=== PATIENT | male | born 1985 | race Caucasian/White ===

== ENCOUNTER → 2020-04-29 12:47 | Outpatient (BNVA) | payer OTHER, SELFPAY | PROVIDERS: Visit Provider Internal Medicine | DX: K12.1 Other forms of stomatitis (principal); D86.9 Sarcoidosis, unspecified; M25.50 Pain in unspecified joint; R21 Rash and other nonspecific skin eruption; R53.83 Other fatigue | CPT/HCPCS: 99203 ==

== ENCOUNTER 2020-04-29 14:13 | Outpatient (CLI) | payer OTHER, SELFPAY ==
--- NOTE | 2020-04-29 14:18 | XRR_ITS ---
PROCEDURE INFORMATION: Exam: XR Bilateral Hips with Pelvis when Performed Exam date and time: 04/29/2020 2:37 PM Age: 34 years old Clinical indication: Hip pain; Bilateral; Patient HX: Low back pain TECHNIQUE: Imaging protocol: XR bilateral hips with pelvis when performed. Views: 2 views. COMPARISON: No relevant prior studies available. FINDINGS: Bones/joints: There is sclerosis in the right femoral neck measuring 2.2 x 1.7 cm.There is no evidence for acute fracture or malalignment. Soft tissues: Unremarkable. XR/XR hip BI 3-4V wo/w pel [id number] IMPRESSION: There are no acute concerning abnormalities.
--- NOTE | 2020-04-29 14:18 | XRR_ITS ---
PROCEDURE INFORMATION: Exam: XR Left Hand Exam date and time: 04/29/2020 2:35 PM Age: 34 years old Clinical indication: Pain; Hand; Bilateral; Additional info: Hand pain TECHNIQUE: Imaging protocol: XR Left hand. Views: 3 or more views. COMPARISON: No relevant prior studies available. FINDINGS: Bones/joints: There is no evidence for acute fracture or malalignment. No significant joint space narrowing, osteophyte formation or erosions. Soft tissues: Normal. XR/XR hand LT 2V [id number] IMPRESSION: No acute findings.
--- NOTE | 2020-04-29 14:18 | XRR_ITS ---
PROCEDURE INFORMATION: Exam: XR Right Hand Exam date and time: 04/29/2020 2:35 PM Age: 34 years old Clinical indication: Pain; Hand; Bilateral; Additional info: Hand pain TECHNIQUE: Imaging protocol: XR Right hand. Views: 1 or 2 views. COMPARISON: No relevant prior studies available. FINDINGS: Bones/joints: There is no evidence for acute fracture or malalignment. No significant joint space narrowing or osteophyte formation. No erosions. Soft tissues: Normal. XR/XR hand RT 2V [id number] IMPRESSION: No acute findings.
--- NOTE | 2020-04-29 14:18 | XRR_ITS ---
PROCEDURE INFORMATION: Exam: XR Lumbosacral Spine, 2 or 3 Views Exam date and time: 04/29/2020 2:35 PM Age: 34 years old Clinical indication: Low back pain; Additional info: Lower back pain TECHNIQUE: Imaging protocol: XR of the lumbosacral spine, 2 or 3 views. COMPARISON: No relevant prior studies available. FINDINGS: Vertebrae: Normal. No acute fracture. Normal alignment. No significant disc space narrowing or osteophyte formation. Soft tissues: Unremarkable. XR/XR lumbar spine 2-3V* [id number] IMPRESSION: No acute findings.
[2020-04-29 14:31] LABS: Basophils % 0.3 %; Eosinophils # 0.1 10^3/uL (0.0-0.8); Eosinophils % 0.7 %; Hematocrit 50.7 % (42.0-52.0); Hemoglobin 17.1 g/dL (11.7-16.6); Lymphocytes # 1.6 10^3/uL (0.8-4.8); Lymphocytes % 23.3 %; Mean Corpuscular HGB Conc 33.7 g/dL (30.0-36.0); Mean Corpuscular Hemoglobin 29.7 pg (28.0-34.0); Mean Corpuscular Volume 88.2 fL (80-94); Mean Platelet Volume 9.6 fL (7.4-10.4); Monocytes # 0.5 10^3/uL (0.2-0.9); Monocytes % 7.3 %; Neutrophils # 4.55 10^3/uL (1.8-7.7); Neutrophils % 68.1 %; Nucleated Red Blood Cells % 0 %; Platelet Count 234 10^3/cmm (130-400); Red Blood Count 5.75 10^6/uL (4.1-5.3); Red Cell Distribution Width 11.2 % (12.1-15.1); White Blood Count 6.7 10^3/uL (4.0-10.0)
[2020-04-29 15:10] LABS: 25 Hydroxy Vitamin D 31 ng/mL (30-100); Alanine Aminotransferase 20 U/L (0-41); Albumin Level 4.7 g/dL (3.5-5.2); Alkaline Phosphatase 77 IU/L (40-130); Anion Gap 13.2 (5-19); Aspartate Amino Transferase 20 U/L (0-40); Blood Urea Nitrogen 21 mg/dL (6-20); C Reactive Protein 0.7 mg/L (0.0-4.9); Calcium 9.4 mg/dL (8.5-10.5); Carbon Dioxide 30 mmol/L (22-29); Chloride 102 mmol/L (98-107); Creatine Phosphokinase 153 U/L (39-308); Ferritin 182 ng/mL (30-400); Glomerular Filtration Rate 77.1 mL/min (90-130); Glucose 100 mg/dL (65-115); Iron 80 ug/dL (59-158); Osmolality Calculated 295 mOsm/kg (285-295); Potassium 4.2 mmol/L (3.5-5.1); Sodium 141 mmol/L (136-145); Total Bilirubin 0.4 mg/dL (0.15-1.2); Total Protein 7.7 g/dL (6.6-8.7); Vitamin B12 787 pg/mL (232-1245)
[2020-04-29 15:11] LABS: Folate Level 12.6 ng/mL (4.5-32.2)
[2020-04-29 15:12] LABS: Hepatitis B Core AB, Total Non-Reactive (Nonreactive); Hepatitis B Surface Antigen Non-Reactive (Nonreactive); Hepatitis C Virus Antibody Non-Reactive (Nonreactive)
[2020-04-29 15:19] LABS: Erythrocyte Sedimentation Rate 4 mm/hr (0-10)
[2020-04-30 11:56] LABS: COMPLEMENT COMPONENT C3C 110 mg/dL (82-185); COMPLEMENT COMPONENT C4C 26 mg/dL (15-53); COMPLEMENT, TOTAL (CH50) >60 U/mL (31-60)
[2020-04-30 13:53] LABS: Cyclic Citrullinated Peptide <16 UNITS
[2020-05-01 12:33] LABS: CENTROMERE B ANTIBODY <1.0 NEG AI (<1.0 NEG); JO-1 ANTIBODY <1.0 NEG AI (<1.0 NEG); RNP ANTIBODY <1.0 NEG AI (<1.0 NEG); SCL-70 ANTIBODY <1.0 NEG AI (<1.0 NEG); SJOGREN'S ANTIBODY (SS-A) <1.0 NEG AI (<1.0 NEG); SM ANTIBODY <1.0 NEG AI (<1.0 NEG); THYROID PEROXIDASE ANTIBODIES 2 IU/mL (<9)
[2020-05-01 14:33] LABS: ANA SCREEN, IFA NEGATIVE (NEGATIVE)
[2020-05-01 19:47] LABS: HLA-B27 NEGATIVE (NEGATIVE)
[2020-05-05 02:52] LABS: DNA AB (DS) CRITHIDIA,IFA NEGATIVE (NEGATIVE)
== END 2020-04-29 14:14 | disposition home or self-care (01) ==
LOC: RAD 14:16
PROVIDERS: Visit Provider Internal Medicine
DX: M25.50 Pain in unspecified joint (principal); M54.5 Low back pain; M25.552 Pain in left hip; M25.551 Pain in right hip; M79.642 Pain in left hand; M79.641 Pain in right hand
CPT/HCPCS: 36415; 72100; 73120; 73521; 73522; 80053; 82306; 82550; 82607; 82728; 82746; 83540; 85025; 85651; 86140; 86431; 86704; 86803; 86812; 87340

== ENCOUNTER → 2020-05-13 13:31 | Outpatient (BNVA) | payer OTHER, SELFPAY | PROVIDERS: Visit Provider Internal Medicine | DX: M10.9 Gout, unspecified (principal); R53.83 Other fatigue; K12.1 Other forms of stomatitis; M25.50 Pain in unspecified joint; D75.1 Secondary polycythemia | CPT/HCPCS: 99214 ==

== ENCOUNTER → 2020-05-14 08:38 | Outpatient (BNVA) | payer OTHER, SELFPAY | PROVIDERS: Referring Provider Internal Medicine; Visit Provider Internal Medicine | DX: R53.83 Other fatigue (principal) | CPT/HCPCS: 82024; 82533; 84403; 85025 ==

== ENCOUNTER 2020-07-09 10:01 | Outpatient (CLI) | payer OTHER, SELFPAY ==
--- NOTE | 2020-07-09 17:32 | ONC CON_ITS ---
Dr. Suazo New Patient Note Patient: Giovanny Torres Unit #: [id number]: 1985 Dicatated By: Jadon Suazo M.D.Date of Visit: Jul 09, 2020 Onc MED New Patient/Consult Referring Physician: Chief Complaint: Elevated hemoglobin. History of Present Illness: This is a 34-year-old man who is seen in regard to an elevated hemoglobin level. On 04/29/2020 he had rheumatology consultation with Dr. Vela with complaints of fatigue, arthralgia, and recurrent oral ulcerations. His laboratory evaluation showed no evidence for underlying autoimmune disease. His CBC, though, did show elevated hemoglobin at 17.1 g with hematocrit 50.7%. The red cell indices were normal. The white blood cell count was 6700 and the platelet count was 234,000. Sed rate was normal at 4 mm/hour and C-reactive protein was normal at 0.7 mg/L. Comprehensive metabolic profile showed normal renal function, normal bilirubin, normal liver enzymes. Serum iron, ferritin, and B12 levels were also normal. A repeat CBC on 05/14/2020 showed similar findings with hemoglobin 16.9 g and hematocrit 50.0%. Additional studies at that time included normal total testosterone at 369.9 ng/dL, normal random cortisol level and normal ACTH level. He indicates that he had been experiencing increasing fatigue since December 2018 and he was having some joint pain and stiffness, mainly in the ankles when he would first get up in the morning. He was having some low back pain as well. However, since the cooler weather has set in, though symptoms have improved significantly. He says his activity level is now pretty close to being back to normal. His ECOG score is 0. He has good appetite and his weight has been stable. He does not have fever or night sweats. He has had mild sores on an intermittent basis. He sometimes has shortness of breath, but it is sporadic. He has just occasional cough. He does not complain of chest pain. He has no GI or complaints. He does not complain of headache or dizziness, and he has no focal neurologic symptoms. Past Medical History: He has a history of gout, which he has managed with diet. He has had no other ongoing medical illnesses. Past Surgical History: His only prior surgical procedure was a wisdom teeth extraction. Medications: Vitamin D3 1 Tablet Oral q 7 days PRN Allergies: Amoxicillin and Ibuprofen. Social History: Mr. Torres is . He is a non-smoker. 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 He does not drink alcohol. Family History: Both parents are still living, father age 55 and mother at age 61. He has COPD and she has fibromyalgia. A brother and 2 sisters are in good health. His paternal grandfather has been treated for non-Hodgkin's lymphoma, and he also has heart disease. Review Of Symptoms: Constitutional - He was having fatigue, but his energy has been better since the weather cooled off. He is pretty much back to normal activity. Appetite is good and weight is stable. No fever, night sweats, or hot flashes. ECOG score is 0, Eyes - No change in vision, ENMT - No hearing loss or tinnitus. No sinus congestion/drainage. He does get sores in his mouth intermittently. No sore throat or difficulty swallowing, Hematologic/Lymphatic - No abnormal bruising or bleeding, Respiratory - He sometimes has shortness of breath, but it is sporadic. He has just occasional cough. No pleuritic pain or hemoptysis, Cardiovascular - No angina pain. No palpitations, Gastrointestinal - No nausea or vomiting. No heartburn or acid reflux. No diarrhea or constipation. No blood in the stool or black stools, Genitourinary (M) - No dysuria or hematuria. No urinary frequency. No urgency or incontinence, Musculoskeletal - He was having joint pain and stiffness, mainly in his ankles when he would first get up in the morning. It has improved, Integumentary - He was getting some skin lesions on his scalp, but that has resolved, Neurologic - No headache or dizziness. No numbness or tingling. No other focal neurologic symptoms, Psychiatric - No anxiety or depression. No insomnia. Vital Signs: Performed on Jul 09, 2020 10:49: 0, 25.66, 2.04 sq.m, 71.00 in, 97 %, 80 /min, 16 /min, 131/72 mm(hg), 99.5 F (HIGH), and 184.00 lbs (HIGH). Physical Examination: Constitutional - He appears to be in good general health, Eyes - Sclerae nonicteric. Conjunctivae clear, ENMT - No lesions noted in the oral cavity, Neck - No mass or thyromegaly, Hematologic/Lymphatic - No cervical, clavicular, or axillary adenopathy, Respiratory - Lungs are clear with good air movement bilaterally, Cardiovascular - Heart rhythm is regular. There is no murmur, gallop, or rub noted, Abdomen - Soft and non-tender. Liver and spleen are not enlarged. There is no abdominal mass or ascites noted and there is no inguinal adenopathy, Back/Spine - No spine or CVA tenderness noted, Extremities - No edema, Integumentary - No rashes. No suspicious skin lesions noted, Neurologic - No focal neurologic deficits noted. Impression: 1. Patient with mildly elevated hemoglobin/hematocrit levels. In a young and generally healthy male, the most likely cause for this would be a decreased plasma volume, i.e. stress erythrocytosis . There are no findings to suggest other causes for secondary polycythemia, and his age and clinical findings would make polycythemia rubra vera extremely unlikely. 2. He has had fatigue and some mild arthralgia, but those symptoms do appear to be improving. 3. He also has had recurrent oral ulcerations. 4. He has a history of gout which he has managed with diet. Plan: The laboratory findings and clinic complications were reviewed with the patient. With just mildly elevated hemoglobin/hematocrit levels and with no evidence for hypoxia or other cause for secondary polycythemia, this is most likely going to be due to a decreased plasma volume at present we have no available method to reliably measure the red cell and plasma volumes. As such, this is pretty much just a diagnosis of exclusion. At this point I do want to repeat his CBC and I would recommend continued monitoring of his blood counts at least every 6 months. However, in the absence of a significant increase in his hemoglobin/hematocrit levels, I do not feel that any additional evaluation is necessary. In particular, in his situation, I would not recommend molecular studies for PRV unless there is further progression of the hematologic abnormalities. For now he will have a repeat CBC done this week through the [facility] and thereafter he can have blood counts checked every [address] Dhaliwal. I will just plan to see him again as needed. Signed By: Jadon Suazo M.D. <<Signature on File>>
== END 2020-07-09 10:02 | disposition home or self-care (01) ==
LOC: ONCMED 10:05
PROVIDERS: PCP Family Medicine; Visit Provider Internal Medicine Medical Oncology
DX: D75.1 Secondary polycythemia (principal); R53.83 Other fatigue; K12.0 Recurrent oral aphthae; M10.9 Gout, unspecified; Z79.899 Other long term (current) drug therapy
CPT/HCPCS: 99203; G0463